=== PATIENT | female | born 1930 | race Caucasian/White ===

== ENCOUNTER 2020-05-14 13:35 | Inpatient (IN) | payer MEDICARE ==
[2020-05-14 14:42] LABS: BILIRUBIN NEGATIVE (NEGATIVE); BLOOD NEGATIVE Ery/uL (NEGATIVE); CLARITY CLEAR (CLEAR); COLOR YELLOW (YELLOW); GLUCOSE (U) NORMAL (NORMAL); LEUKOCYTES 2+ Leu/uL (NEGATIVE); NITRITE NEGATIVE (NEGATIVE); PROTEIN NEGATIVE (NEGATIVE); SPECIFIC GRAVITY 1.015 (1.001-1.030); UROBILINOGEN 0.2 mg/dL (0.2-1.0); pH 6.5 (5.0-9.0)
[2020-05-14 14:55] LABS: BASOPHIL 0.6 % (0-2); EOSINOPHIL 2.9 % (0-7); HCT 36.8 % (37.0-47.0); HGB 11.9 g/dl (12.5-16.0); LYMPHOCYTE 30.6 % (15-48); MCH 30.1 pg (25.0-31.0); MCHC 32.3 g/dL (32.0-36.0); MCV 93.2 fL (78.0-100.0); MONOCYTE 9.1 % (0-12); MPV 10.1 fL (6.0-9.5); NRBC 0; PLT 320 K/uL (150-400); RBC 3.95 M/uL (4.20-5.40); WBC 9.7 K/uL (4.0-10.5)
[2020-05-14 14:56] LABS: BACTERIA TRACE; SQUAMOUS EPITHELIAL CELLS RARE; URINARY RBC RARE
[2020-05-14 15:17] LABS: ALBUMIN 1.9 g/dL (3.4-5.0); BILIRUBIN - TOTAL 0.4 mg/dL (0.2-1.0); BUN/CREAT RATIO (CALC) 22.1 RATIO; CREATININE 0.86 mg/dL (0.51-0.95); GLOBULIN (CALCULATION) 4.4 g/dL; POTASSIUM 5.5 mmol/L (3.5-5.1); TOTAL PROTEIN 6.3 g/dL (6.4-8.2)
[2020-05-14 15:30] LABS: LACTIC ACID 2.7 mmol/L (0.4-1.9)
[2020-05-14] MEDS ORDERED: DIGITEK125 MCG PO (21:01)
[2020-05-14] MEDS ORDERED: GABAPENTIN600 MG PO (21:02)
[2020-05-14] MEDS ORDERED: ARICEPT 5MG TABL5 MG PO (21:02)
[2020-05-14] MEDS ORDERED: SYNTHROID50 MCG PO (21:03)
[2020-05-14] MEDS ORDERED: LOPRESSOR50 MG PO (21:04)
[2020-05-14] MEDS ORDERED: DITROPAN5 MG PO (21:04)
[2020-05-14] MEDS ORDERED: NORCO 5-325 TA1 EACH PO (21:06)
[2020-05-14] MEDS ORDERED: ASPIRIN EC81 MG PO (21:06)
[2020-05-14] MEDS ORDERED: ALENDRONATE SOD70 MG PO (21:07)
[2020-05-14] MEDS ORDERED: BUMEX1 MG PO ×2 (21:08→21:09)
[2020-05-14] MEDS ORDERED: DOXYCYCLINE MO100 MG PO (21:11)
[2020-05-14] MEDS ORDERED: MACROBID100 MG PO (21:12)
[2020-05-14] MEDS ORDERED: FAMOTIDINE20 MG PO (21:13)
[2020-05-15 05:48] LABS: HGB 11.3 g/dl (12.5-16.0); MCH 29.7 pg (25.0-31.0); MCHC 32.3 g/dL (32.0-36.0); MCV 91.9 fL (78.0-100.0); MPV 10.2 fL (6.0-9.5); RBC 3.81 M/uL (4.20-5.40); RDW 16.9 % (11.5-14.0)
[2020-05-15 06:22] LABS: BUN/CREAT RATIO (CALC) 21.2 RATIO; CREATININE 0.8 mg/dL (0.51-0.95); POTASSIUM 5.1 mmol/L (3.5-5.1)
--- NOTE | 2020-05-15 13:56 | NUR ---
MET WITH PT FOR ASSESSMENT. PT. STATES THAT SHE RESIDES WITH HER DAUGHTER AFTER RETURNING FROM HER HOME IN [place]. SHE MOVED IN WITH HER DAUGHTER HER DAUGHTER IN LAW AND NO ONE WAS HOME TO HELP HER. PT. STATES THAT SHE HAS A NURSE, AND THERAPIST, BUT IS UNSURE OF WHO THE NURSE IS WITH. TC TO PT. DAUGHTER, MARGARET GALLEGO, SHE STATED THAT THEY RESIDE AT [address] [place] [address]. SHE ADVISED THAT HER MOTHER IS CURRENT WITH [facility]. SHE HAS A NURSE AND A THERAPIST. SHE ALSO HAS A ROLLING WALKER, WHEELCHAIR, SHOWER CHAIR, 05/12 AND A HOSPITAL BED. LUKE STATED THAT SHE WANTS TO CONTINUE WITH [facility]. AFFLIATIONS EXPLAINED. SHE IS AWARE THAT HER MOTHER WILL COMPLETE HER IV ABX WHILE IN THE HOSPITAL. PT. WILL D/C BACK HOME WITH HER DAUGHTER.
[2020-05-16 05:36] LABS: HCT 37.3 % (37.0-47.0); HGB 11.9 g/dl (12.5-16.0); MCH 30.3 pg (25.0-31.0); MCHC 31.9 g/dL (32.0-36.0); MCV 94.9 fL (78.0-100.0); MPV 10.5 fL (6.0-9.5); RBC 3.93 M/uL (4.20-5.40); RDW 17.2 % (11.5-14.0); WBC 6.5 K/uL (4.0-10.5)
[2020-05-16 05:56] LABS: BUN/CREAT RATIO (CALC) 18.1 RATIO; CREATININE 0.83 mg/dL (0.51-0.95); POTASSIUM 5.2 mmol/L (3.5-5.1)
[2020-05-16] MEDS ORDERED: ERTAPENEM1 GM IV (11:39)
--- NOTE | 2020-05-16 14:13 | NUR ---
PT. TO D/C HOME WITH DAUGHTER AT [address] [place], [place] [address]. PT. HAS A ROLLING WALKER, WHEELCHAIR, SHOWER CHAIR, 05/12 AND HOSPITAL BED. SHE IS CURRENT WITH [facility] . PT. IS RECIEVED A PICC OR MIDLINE FOR IV ABX. THIS REFERRAL HAS BEEN SENT TO [facility]. [facility] WILL ARRANGE FOR IV [facility]. THROUGH [facility]. ANTICIPATED D/C IS 05/17/20.
--- NOTE | 2020-05-16 14:14 | NUR ---
TC WITH DAUGHTER, SHE IS AGREEABLE TO PAY THE COST OF THE ABX. OF $423.00 SHE DOES NOT WANT TO SEND HER MOTHER TO A CARE HOME UNIT NOR DOES SHE WANT TO DO OUTPT. IV ABX. WENT TO PT. ROOM AND CALLED DAUGHTER SO SHE COULD TELL HER MOTHER THE PLAN ABOUT THE ABX. MOTHER IS IN AGREEMENT. DR. PAREKH ALSO SPOKE WITH DAUGHTER AND EXPLAINED ABOUT THE TYPE OF ABX. ADVISED SHANON MAHMOOD OF THE PLAN FOR THE PT. D/C.
--- NOTE | 2020-05-16 16:56 | NUR ---
1510 PT HAD A PICC LINE ORDERED, TALKED WITH DR. PAREKH , SHE SAID A MIDLINE IS OK INSTEAD OF A PICC LINE. PROCEDURE WAS EXPLAINED TO THE PATIENT, PT AGREED. PT'S LEFT ARM WAS POSITIONED OUT TO THE SIDE AND THE US MACHINE WAS USED TO LOCATE THE LEFT UPPPER ARM BASILIC VEIN. THEN THE ALYSSA WAS CLEANSED WITH CHLORAPREP, THE US MACHINE WS USED ONCE AGAIN TO LOCATE THE ALYSSA BASILIC VEIN, A #21G GUIDE NEEDLE WAS USED TO CANNULATE THE VEIN ,COULD NOT THREAD IT INTO THE VEIN, THE US WAS USED TO LOCATE ANOTHER VEIN AND A #21 G NEEDLE WAS USED, THERE WAS GOOD BLOOD RETURN AND THE GUIDE WIRE WAS THREADED INTO POSITION. A 20 G MIDLINE 10CM LENGTH WAS THREADED OVER THE GUIDE WIRE INTO PLACE, THERE WAS GOOD BLOOD RETURN AND IT FLUSHED EASILY WITH NORMAL SALINE. A LOOP WAS ATTACHED WITH AN END CAP, THIS WAS FLUSHED BEFORE CONNECTING IT ONTO THE MIDLINE, THE AREA WAS CLEANED WITH STERILE SALINE. THE MIDLINE WAS DRESSED WITH A STERILE DRESSING AND IT WAS THEN FLUSHED AGAIN WITH 20 ML OF NORMAL SALINE, IT HAD GOOD BLOOD RETURN PRIOR TO FLUSHING. rEPORT WS GIVEN TO Ignacia MAHMOOD ON MED/SURG. THE BED WAS LOWERED TO THE LOWEST POSITION, BED ALARM WAS ON, SIDE RAILS UP X2 AND THE CALL LIGHT WAS WITHIN REACH. PT TOLERATED THE PROCEDURE WELL.
--- NOTE | 2020-05-17 07:30 | NUR ---
ORIENTATING LOIS CLAUDIO, VERIFIES DOCUMENTATION TRUE AND ACCURATE. DID ALL ASSESMENTS AND MEDICATION PASSES WITH LOIS CLAUDIO
--- NOTE | 2020-05-17 15:05 | NUR ---
DISCHARGE INSTRUCTIONS GONE OVER WITH DAUGHTER WHO WILL BE TAKING CARE OF THE PATIENT AT HOME.
== END 2020-05-17 15:00 | disposition home health service (06) | DRG 872 ==
LOC: FER 13:35 → FMS 16:45
PROVIDERS: Emergency Medicine; ADMIT Hospitalist
PROC: 05HY33Z Insertion of Infusion Device into Upper Vein, Percutaneous Approach (ICD-10-PCS; principal; 2020-05-16)
DX: A41.9 Sepsis, unspecified organism (principal); N39.0 Urinary tract infection, site not specified; Z16.12 Extended spectrum beta lactamase (ESBL) resistance; I50.32 Chronic diastolic (congestive) heart failure; I13.0 Hypertensive heart and chronic kidney disease with heart failure and stage 1 through stage 4 chronic kidney disease, or unspecified chronic kidney disease; B96.20 Unspecified Escherichia coli [E. coli] as the cause of diseases classified elsewhere; E03.9 Hypothyroidism, unspecified; I48.91 Unspecified atrial fibrillation; E11.9 Type 2 diabetes mellitus without complications; E78.5 Hyperlipidemia, unspecified; N18.30 Chronic kidney disease, stage 3 unspecified; G89.29 Other chronic pain; M54.9 Dorsalgia, unspecified; M54.2 Cervicalgia; Z86.73 Personal history of transient ischemic attack (TIA), and cerebral infarction without residual deficits; Z88.2 Allergy status to sulfonamides; Z88.6 Allergy status to analgesic agent; Z90.49 Acquired absence of other specified parts of digestive tract; Z79.82 Long term (current) use of aspirin; Z20.822 Contact with and (suspected) exposure to COVID-19; F03.90 Unspecified dementia, unspecified severity, without behavioral disturbance, psychotic disturbance, mood disturbance, and anxiety
CPT/HCPCS: 36415; 80048; 80053; 81001; 83605; 84145; 85025; 87040; 87088; 93005; 97162; 97166; 97530; 97530-GP; 97535; C1751; J1642; J2185; J7030; U0002

== ENCOUNTER 2020-06-02 23:22 | Inpatient (IN) | payer MEDICARE ==
[~2020-06-02 23:22] MED LIST: ALENDRONATE SOD70 MG PO; ARICEPT 5MG TABL5 MG PO; ASPIRIN EC81 MG PO; BUMEX1 MG PO; DIGITEK125 MCG PO; DITROPAN5 MG PO; DOXYCYCLINE MO100 MG PO; ERTAPENEM1 GM IV; FAMOTIDINE20 MG PO; GABAPENTIN600 MG PO; LOPRESSOR50 MG PO; MACROBID100 MG PO; NORCO 5-325 TA1 EACH PO; SYNTHROID50 MCG PO
[2020-06-03 00:48] LABS: BASOPHIL 0.2 % (0-2); EOSINOPHIL 0 % (0-7); HCT 32.6 % (37.0-47.0); LYMPHOCYTE 20.6 % (15-48); MCH 30.6 pg (25.0-31.0); MCHC 33.7 g/dL (32.0-36.0); MCV 90.8 fL (78.0-100.0); MONOCYTE 6.6 % (0-12); MPV 10.6 fL (6.0-9.5); NEUTROPHIL 72.1 % (41-80); NRBC 0; PLT 298 K/uL (150-400); RBC 3.59 M/uL (4.20-5.40); RDW 16.4 % (11.5-14.0)
[2020-06-03 01:02] LABS: INR 1.1 (0.9-1.2); PROTHROMBIN TIME 13.5 SECONDS (11.4-13.6); PTT 34.3 SECONDS (22.2-34.7)
[2020-06-03 01:56] LABS: CREATININE 1.26 mg/dL (0.51-0.95); POTASSIUM 4.7 mmol/L (3.5-5.1)
[2020-06-03 01:57] LABS: ALBUMIN 1.6 g/dL (3.4-5.0); BILIRUBIN - TOTAL 0.5 mg/dL (0.2-1.0); C-REACTIVE PROTEIN 12.8 mg/dL (<=0.90); GLOBULIN (CALCULATION) 4.1 g/dL; MAGNESIUM 2.4 mg/dL (1.8-2.4); TOTAL PROTEIN 5.7 g/dL (6.4-8.2)
[2020-06-03 02:07] LABS: BILIRUBIN NEGATIVE (NEGATIVE); BLOOD NEGATIVE Ery/uL (NEGATIVE); CLARITY CLEAR (CLEAR); COLOR YELLOW (YELLOW); GLUCOSE (U) NORMAL (NORMAL); LEUKOCYTES NEGATIVE Leu/uL (NEGATIVE); NITRITE NEGATIVE (NEGATIVE); PROTEIN NEGATIVE (NEGATIVE); UROBILINOGEN 0.2 mg/dL (0.2-1.0)
[2020-06-03] MEDS ORDERED: TRAMADOL HCL50 MG PO (05:08)
[2020-06-03] MEDS ORDERED: PHENERGAN12.5 M1 PO (05:10)
[2020-06-03 06:00] LABS: ALBUMIN 1.4 g/dL (3.4-5.0); BILIRUBIN - TOTAL 0.5 mg/dL (0.2-1.0); BUN/CREAT RATIO (CALC) 14.5 RATIO; CREATININE 1.17 mg/dL (0.51-0.95); GLOBULIN (CALCULATION) 3.6 g/dL; POTASSIUM 4.4 mmol/L (3.5-5.1)
[2020-06-03 12:24] LABS: BASOPHIL 0.1 % (0-2); EOSINOPHIL 0.7 % (0-7); HCT 27.1 % (37.0-47.0); LYMPHOCYTE 24.9 % (15-48); MCH 30.5 pg (25.0-31.0); MCHC 33.2 g/dL (32.0-36.0); MCV 91.9 fL (78.0-100.0); MONOCYTE 6.9 % (0-12); MPV 10.4 fL (6.0-9.5); NEUTROPHIL 66.8 % (41-80); NRBC 0; PLT 234 K/uL (150-400); RBC 2.95 M/uL (4.20-5.40); RDW 16.7 % (11.5-14.0); WBC 13.6 K/uL (4.0-10.5)
[2020-06-03 12:45] LABS: IRON % SATURATION 6.6 %SAT (20-50)
[2020-06-03 13:14] LABS: FOLIC ACID (SERUM) 11.5 ng/mL (8.6-58.9); FT4 (FREE T4) 1.6 ng/dL (0.76-1.46)
[2020-06-04 03:35] LABS: BASOPHIL 0.2 % (0-2); EOSINOPHIL 2.8 % (0-7); HGB 8.5 g/dl (12.5-16.0); LYMPHOCYTE 23.6 % (15-48); MCH 30.5 pg (25.0-31.0); MCHC 32.7 g/dL (32.0-36.0); MCV 93.2 fL (78.0-100.0); MONOCYTE 7.1 % (0-12); MPV 10.5 fL (6.0-9.5); NEUTROPHIL 65.5 % (41-80); NRBC 0; PLT 212 K/uL (150-400); RBC 2.79 M/uL (4.20-5.40); RDW 16.6 % (11.5-14.0); WBC 11.2 K/uL (4.0-10.5)
[2020-06-04 04:05] LABS: PRO-BNP 4588 pg/mL (<450)
[2020-06-04 04:07] LABS: ALBUMIN 1.2 g/dL (3.4-5.0); ALKALINE PHOSHATASE 85 U/L (46-116); ALT <6 U/L (14-59); AST 14 U/L (15-37); BILIRUBIN - TOTAL 0.3 mg/dL (0.2-1.0); BUN 18 mg/dL (7-18); BUN/CREAT RATIO (CALC) 16.2 RATIO; C-REACTIVE PROTEIN >18.00 mg/dL (<=0.90); CHLORIDE 106 mmol/L (98-107); CO2 (BICARBONATE) 24 mmol/L (21-32); CREATININE 1.11 mg/dL (0.51-0.95); FOLIC ACID (SERUM) 9.3 ng/mL (8.6-58.9); GLOBULIN (CALCULATION) 3.4 g/dL; GLUCOSE 81 mg/dL (74-106); POTASSIUM 3.8 mmol/L (3.5-5.1); TOTAL PROTEIN 4.6 g/dL (6.4-8.2)
[2020-06-04 12:51] LABS: BASOPHIL 0.3 % (0-2); EOSINOPHIL 3.1 % (0-7); HCT 28.4 % (37.0-47.0); HGB 9.7 g/dl (12.5-16.0); LYMPHOCYTE 29.9 % (15-48); MCH 30.6 pg (25.0-31.0); MCHC 34.2 g/dL (32.0-36.0); MCV 89.6 fL (78.0-100.0); MPV 10.6 fL (6.0-9.5); NEUTROPHIL 58.9 % (41-80); PLT 210 K/uL (150-400); RBC 3.17 M/uL (4.20-5.40); RDW 16.2 % (11.5-14.0); WBC 12.1 K/uL (4.0-10.5)
[2020-06-04 13:26] LABS: ALBUMIN 1.3 g/dL (3.4-5.0); BILIRUBIN - TOTAL 0.3 mg/dL (0.2-1.0); BUN/CREAT RATIO (CALC) 17.3 RATIO; CREATININE 0.98 mg/dL (0.51-0.95); GLOBULIN (CALCULATION) 3.2 g/dL; MAGNESIUM 1.9 mg/dL (1.8-2.4); PHOSPHORUS 2.8 mg/dL (2.6-4.7); POTASSIUM 4.6 mmol/L (3.5-5.1); TOTAL PROTEIN 4.5 g/dL (6.4-8.2)
[2020-06-04 13:30] LABS: BAND 1 % (0-10); EOSINOPHIL(M) 3 % (0-7); MONOCYTE(M) 6 % (0-12); NEUTROPHILS(M) 62 % (41-80); TOTAL CELL COUNT 100; VARIANT LYMPHOCYTE 1
[2020-06-04 13:31] LABS: LYMPHOCYTE(M) 2 % (15-48)
[2020-06-04 13:32] LABS: PLATELET ESTIMATE NORMAL; PLATELET MORPHOLOGY NORMAL
--- NOTE | 2020-06-04 16:12 | NUR ---
06/04/20 Ms. Jurado lives with her daughter, Azra Macedo, in [facility]. She has a rw, wc, 3in1, and s. chair. [facility] is current and Ms. Angel wishes to continue services. [facility] was notified of admission via [employer].
[2020-06-05 03:42] LABS: BASOPHIL 0.2 % (0-2); EOSINOPHIL 0.6 % (0-7); HCT 25.7 % (37.0-47.0); HGB 8.7 g/dl (12.5-16.0); LYMPHOCYTE 21.2 % (15-48); MCH 30.6 pg (25.0-31.0); MCHC 33.9 g/dL (32.0-36.0); MCV 90.5 fL (78.0-100.0); MONOCYTE 6.1 % (0-12); MPV 10.7 fL (6.0-9.5); NEUTROPHIL 70.3 % (41-80); NRBC 0; PLT 201 K/uL (150-400); RBC 2.84 M/uL (4.20-5.40); RDW 16.5 % (11.5-14.0); WBC 10.3 K/uL (4.0-10.5)
[2020-06-05 04:07] LABS: PRO-BNP 6051 pg/mL (<450)
[2020-06-05 04:09] LABS: ALBUMIN 1.5 g/dL (3.4-5.0); ALKALINE PHOSHATASE 93 U/L (46-116); ALT 6 U/L (14-59); AST 15 U/L (15-37); BILIRUBIN - TOTAL 0.3 mg/dL (0.2-1.0); BUN 14 mg/dL (7-18); BUN/CREAT RATIO (CALC) 15.4 RATIO; C-REACTIVE PROTEIN >18.00 mg/dL (<=0.90); CHLORIDE 106 mmol/L (98-107); CO2 (BICARBONATE) 24 mmol/L (21-32); CREATININE 0.91 mg/dL (0.51-0.95); GLOBULIN (CALCULATION) 3.4 g/dL; GLUCOSE 81 mg/dL (74-106); MAGNESIUM 1.6 mg/dL (1.8-2.4); POTASSIUM 3.9 mmol/L (3.5-5.1); TOTAL PROTEIN 4.9 g/dL (6.4-8.2)
--- NOTE | 2020-06-05 17:02 | NUR ---
PT C/O BACK/CHEST HURTING, FEELING SOA, HR 130'S. P.O. LOPRESSOR RESUMED, DR. CARPENTER NOTIFIED, CAME TO BEDSIDE TO ASSESS PT - LUNGS CLEAR TO AUSCULTATION, VSS 02 SATS 98% ON RA, PLACED ON 2 L/MIN PER NC FOR COMFORT & SATS 99-100%. MD ORDERED EKG, TROPONIN, BMP, CXR. TORADOL GIVEN ORDERED PER IVP & HR & PAIN IMPROVED. WILL CONTINUE TO MONITOR CLOSELY & AWAIT TEST RESULTS. MD TO ALSO ORDER BUMEX IVP & DECREASE IVF PT HAS HX OF CHF.
[2020-06-05 17:41] LABS: BUN/CREAT RATIO (CALC) 11.9 RATIO; CREATININE 0.84 mg/dL (0.51-0.95); POTASSIUM 3.8 mmol/L (3.5-5.1)
[2020-06-06 04:32] LABS: BASOPHIL 0.4 % (0-2); EOSINOPHIL 4.4 % (0-7); HCT 26.4 % (37.0-47.0); HGB 9.1 g/dl (12.5-16.0); MCH 30.7 pg (25.0-31.0); MCHC 34.5 g/dL (32.0-36.0); MCV 89.2 fL (78.0-100.0); MONOCYTE 7.5 % (0-12); MPV 10.4 fL (6.0-9.5); NEUTROPHIL 65.4 % (41-80); NRBC 0; PLT 197 K/uL (150-400); RBC 2.96 M/uL (4.20-5.40); RDW 16.5 % (11.5-14.0); WBC 8.3 K/uL (4.0-10.5)
[2020-06-06 04:56] LABS: PRO-BNP 8601 pg/mL (<450)
[2020-06-06 05:21] LABS: ALBUMIN 1.6 g/dL (3.4-5.0); ALKALINE PHOSHATASE 93 U/L (46-116); ALT <6 U/L (14-59); AST 11 U/L (15-37); BILIRUBIN - TOTAL 0.3 mg/dL (0.2-1.0); BUN 9 mg/dL (7-18); BUN/CREAT RATIO (CALC) 10.6 RATIO; CHLORIDE 105 mmol/L (98-107); CO2 (BICARBONATE) 24 mmol/L (21-32); CREATININE 0.85 mg/dL (0.51-0.95); FOLIC ACID (SERUM) 10.6 ng/mL (8.6-58.9); GLOBULIN (CALCULATION) 3.4 g/dL; GLUCOSE 87 mg/dL (74-106); MAGNESIUM 1.8 mg/dL (1.8-2.4); PHOSPHORUS 2.1 mg/dL (2.6-4.7); POTASSIUM 3.8 mmol/L (3.5-5.1)
--- NOTE | 2020-06-06 21:30 | NUR ---
PT GLUCOSE CHECKED AD IT WAS 76, CALLED TO MOLD MAINTENANCE TECHNICIAN NO NEW ORDERS
[2020-06-07 04:06] LABS: BASOPHIL 0.8 % (0-2); EOSINOPHIL 2.6 % (0-7); HGB 9.5 g/dl (12.5-16.0); LYMPHOCYTE 30.3 % (15-48); MCH 29.7 pg (25.0-31.0); MCHC 33.9 g/dL (32.0-36.0); MCV 87.5 fL (78.0-100.0); MONOCYTE 9.9 % (0-12); MPV 10.2 fL (6.0-9.5); NEUTROPHIL 52.4 % (41-80); NRBC 0.2; PLT 209 K/uL (150-400); RDW 16.5 % (11.5-14.0); WBC 9.9 K/uL (4.0-10.5)
[2020-06-07 04:38] LABS: BUN/CREAT RATIO (CALC) 8.6 RATIO; CREATININE 0.81 mg/dL (0.51-0.95); POTASSIUM 3.7 mmol/L (3.5-5.1)
--- NOTE | 2020-06-07 04:46 | NUR ---
PT GLUCOSE WAS 81, NOTIFIED CERAMIST- NO NEW ORDERS
--- NOTE | 2020-06-07 18:05 | NUR ---
06/07/20 180 PT HAS A HUSTORY OF DEMENTIA AND SEEMS TO BE A&OX2 TODAY. PT CAN STATE NAME AND BIRTHDAY BUT WHEN NOT THE DATE. PT KNOWS DAUGHTERS NAME AND WAS READING NAME ON DRY Hello Chair BOARD. PT SEEMS LETHARGIC AND HAS AN UNEQUAL GAZE. THIS RN IS NOT SURE WHAT THE EYE CONDITION IS CALLED. PT HAS NOT COMPLAINED OF ANY PAIN TODAY BUT PT HAS NOT EATEN ANYTHING BUT APPLESAUCE WITH MEDS. PT DOES WELL TAKING PO MEDS. PTS HAS +3 EDEMA ON BUE AND HER LEFT ARM IS STARTING TO WEEP. PT HAS HAS FLUID BLISTERS ON RIGHT CHEST FROM FLUID OVERLOAD. MD NOTIFIED AND BUMEX IVP WAS STARTED AND LR @42 WAS DC'D. PT IS RECIEVING 3 DIFFERENT ABX FOR HER DIVERTICULITIS. PT HAS A CENTRAL RIGHT SUBCLAVIAN IN RIGHT UPPER CHEST. DRESSING WAS CHANGED TODAY AFTER A VENOUS DOPPLER WAS PERFORMED. VENOUS DOPPLER WAS ORDERED TO RULE OUT DVT IN RIGHT ARM R/T INCREASED SWELLING. VENOUS DOPPLER WAS NEGATIVE FOR DVT. A CXR WAS ALSO DONE TO SEE WORSENING EDEMA R/T CHF HISTORY. CXR DID SHOW PULM EDEMA AND PLUREAL EFFUSIONS. AGAIN, BUMEX WAS ORDERED, WITH 60 MEQ POTASSIUM. PT HAS A RODRIGUES AND OUTPUT WAS 650CC ON SHIFT. THERE IS A SKIN TEAR ABOUT 4 IN BESIDE CENTRAL ON RIGHT UPPER CHEST. THIS WAS NOTICED WHEN CHANGING DRESSING AND DOCUMENTED. PT LEGS HAVE VENOUS DISCOLRATION, SCATTERED SCABS AND BRUISING ON ALL EXTREMITIES. PT HAS A 3 IN SKIN TEAR ON LEFT UPPER ARM COVERED WITH ALLVEYN. THIS DRESSING WAS CHANGED TODAY BY THIS RN. BOTH SKIN TEARS HAVE BIATRACIN APPLIED. PT GROIN AND BOTTOM ARE RED AND COVERED WITH BARRIER CREAM AND Q2H TURNS. HEELS ARE ELEVATED. AND BOTH UPPER EXTREMITIES ARE ELEVATED TO DECREASE SWELLING. PTS DAUGHTER CALLED RN TODAY AND STATED MANY CONCERNS SHE HAD WITH THE PREVIOUS DR AND THIS HOSPITAL. DAUGHTER STATED "SHE DOES NOT TRUST US" AND SHE HAS NOT BEEN BEING INFORMED OF HER MOTHERS CONDITION AT ALL TIME. RN REASSURED DAUGHTER TO CONTINUE TO INFORM HER. PT WAS STATED BACK ON OXYBUTIN TID FOR CKD. PT LUNGS SOUNDS ARE FAINT CRACKLES GREATER ON THE RIGHT. BP HAS BEEN ELEVATED AT 170/93 BUT ORDERED 200MG LOPRESSOR AND A 1 TIME DOSE OF LOPRESSOR 50MG. LAST BP WAS 114/88. PT IS ON ROOM AIR. PT WORKED WITH HER TODAY AND GOT PT UP IN CHAIR TO PROMOTE LUNG EXPANSION R/T EFFUSIONS AND EDEMA. DAUGHTER HAS BEEN NOTIFIED X3 TODAY BY THIS RN AND ONCE BY .
[2020-06-08 04:52] LABS: ALBUMIN 1.6 g/dL (3.4-5.0); ALKALINE PHOSHATASE 101 U/L (46-116); ALT <6 U/L (14-59); AST 21 U/L (15-37); BILIRUBIN - TOTAL 0.5 mg/dL (0.2-1.0); BUN 7 mg/dL (7-18); BUN/CREAT RATIO (CALC) 8.2 RATIO; CHLORIDE 104 mmol/L (98-107); CO2 (BICARBONATE) 24 mmol/L (21-32); CREATININE 0.85 mg/dL (0.51-0.95); GLOBULIN (CALCULATION) 3.7 g/dL; GLUCOSE 89 mg/dL (74-106); PHOSPHORUS 1.5 mg/dL (2.6-4.7); POTASSIUM 4.5 mmol/L (3.5-5.1); TOTAL PROTEIN 5.3 g/dL (6.4-8.2)
[2020-06-08 04:55] LABS: MAGNESIUM 1.4 mg/dL (1.8-2.4)
[2020-06-08 05:17] LABS: BASOPHIL 0.2 % (0-2); EOSINOPHIL 1.6 & (0-7); HCT 30.4 % (37.0-47.0); HGB 10.2 g/dl (12.5-16.0); LYMPHOCYTE 31.6 % (15-48); MCH 29.4 pg (25.0-31.0); MCHC 33.6 g/dL (32.0-36.0); MCV 87.6 fL (78.0-100.0); MONOCYTE 10.6 % (0-12); MPV 11.1 fL (6.0-9.5); PLT 243 K/uL (150-400); RBC 3.47 M/uL (4.20-5.40); RDW 16.6 % (11.5-14.0); WBC 12.25 K/uL (4.0-10.5)
[2020-06-08 14:26] LABS: BILIRUBIN NEGATIVE (NEGATIVE); BLOOD NEGATIVE Ery/uL (NEGATIVE); CLARITY CLEAR (CLEAR); COLOR YELLOW (YELLOW); GLUCOSE (U) NORMAL (NORMAL); LEUKOCYTES NEGATIVE Leu/uL (NEGATIVE); NITRITE NEGATIVE (NEGATIVE); PROTEIN NEGATIVE (NEGATIVE); UROBILINOGEN 0.2 mg/dL (0.2-1.0)
[2020-06-08 14:43] LABS: BACTERIA TRACE; SQUAMOUS EPITHELIAL CELLS RARE
[2020-06-09 04:47] LABS: BASOPHIL 0.3 % (0-2); EOSINOPHIL 2.5 % (0-7); HCT 28.8 % (37.0-47.0); HGB 10.1 g/dl (12.5-16.0); LYMPHOCYTE 20.9 % (15-48); MCH 30.5 pg (25.0-31.0); MCHC 35.1 g/dL (32.0-36.0); MPV 10.4 fL (6.0-9.5); NEUTROPHIL 57.2 % (41-80); NRBC 0; PLT 210 K/uL (150-400); RBC 3.31 M/uL (4.20-5.40); RDW 16.7 % (11.5-14.0); WBC 10.8 K/uL (4.0-10.5)
[2020-06-09 05:04] LABS: ALBUMIN 1.6 g/dL (3.4-5.0); ALKALINE PHOSHATASE 108 U/L (46-116); ALT <6 U/L (14-59); AST 17 U/L (15-37); BILIRUBIN - TOTAL 0.5 mg/dL (0.2-1.0); BUN 9 mg/dL (7-18); BUN/CREAT RATIO (CALC) 11.2 RATIO; CHLORIDE 105 mmol/L (98-107); CO2 (BICARBONATE) 21 mmol/L (21-32); GLOBULIN (CALCULATION) 3.1 g/dL; GLUCOSE 107 mg/dL (74-106); PHOSPHORUS 3.5 mg/dL (2.6-4.7); POTASSIUM 3.9 mmol/L (3.5-5.1); TOTAL PROTEIN 4.7 g/dL (6.4-8.2)
--- NOTE | 2020-06-09 14:55 | NUR ---
06/09/20 Telephone conversation with Azra Angel, daughter. Patient's level of care was discussed and options of NH vs HH vs Hospice. Ms. Sandy wishes for her mother to be discharged home with HH when appropriate. - Patient has a hospital bed in addition to the DME previously listed, Ms. Angel would like a flaco lift if needed at discharge. - A list of sitters was placed in the patient room as agreed upon with Ms. Angel. - Report given to Dr. Bean.
--- NOTE | 2020-06-10 03:54 | NUR ---
06/10/20 0300 HEART RATE UP INTO THE 130-150 HEATER INSTALLER CONSULTED, NO EKG ORDERED, 5MG LOPRESSOR IVP ORDERED ONE TIME NOW, IVP GIVEN, HEART RATE 0400 70-80
--- NOTE | 2020-06-10 06:01 | NUR ---
0430 HR 130'S COOKIE SALDANA APRN CALLED, ORDERED 1T LOPRESSOR 5ML IVP AND 1T 50 MG LOPRESSOR PO, BP 121/71, 0530 HR 60 0600 HR 40-60
--- NOTE | 2020-06-10 15:30 | NUR ---
PATIENT WITH PERIODS OF BRADYCARDIA IN THE 30'S, NON SUSTAINED, ASYMPTOMIC. NOTIFIED. ORDERS TO D/C PO METOPROLOL AND CONTINUE TO MONITOR
[2020-06-11 03:33] LABS: BASOPHIL 0.7 % (0-2); EOSINOPHIL 4.1 % (0-7); HCT 28.9 % (37.0-47.0); LYMPHOCYTE 39.6 % (15-48); MCH 30.4 pg (25.0-31.0); MCHC 34.6 g/dL (32.0-36.0); MCV 87.8 fL (78.0-100.0); MONOCYTE 12.8 % (0-12); MPV 10.2 fL (6.0-9.5); NEUTROPHIL 36.2 % (41-80); NRBC 0.4; PLT 216 K/uL (150-400); RBC 3.29 M/uL (4.20-5.40); RDW 17.4 % (11.5-14.0)
[2020-06-11 03:36] LABS: WBC 12.6 K/uL (4.0-10.5)
[2020-06-11 04:01] LABS: BUN/CREAT RATIO (CALC) 18.7 RATIO; CREATININE 0.75 mg/dL (0.51-0.95); POTASSIUM 3.7 mmol/L (3.5-5.1)
[2020-06-11] MEDS ORDERED: MEROPENEM-1 GM/50 ML IV (10:24)
--- NOTE | 2020-06-11 11:52 | NUR ---
06/11 Patient will be transferred to [facility], [facility] was notified.
--- NOTE | 2020-07-03 14:20 | NUR ---
PT. TO D/C HOME. PT. HAS A ROLLING WALKER, WHEELCHAIR, 3, HOSPITAL BED. PT. IS CURRENT WITH [facility]. PLEASE NOTIFY IF THERE ARE ANY D/C NEEDS. PT. WITH [facility] HAS BEEN NOTIFIED. PLEASE FAX D/C INFORMATION TO [facility] AT [phone].
== END 2020-06-11 11:50 | disposition other institution (70) | DRG 871 ==
LOC: FER 23:22 → FICU 06-03 02:56 → FTCU 06-03 17:30
PROVIDERS: Emergency Medicine; Internal Medicine; Nurse Practitioner; ADMIT Internal Medicine
PROC: 02H633Z Insertion of Infusion Device into Right Atrium, Percutaneous Approach (ICD-10-PCS; principal; 2020-06-02)
DX: A41.9 Sepsis, unspecified organism (principal); J69.0 Pneumonitis due to inhalation of food and vomit; G92 Toxic encephalopathy; E43 Unspecified severe protein-calorie malnutrition; I50.33 Acute on chronic diastolic (congestive) heart failure; I48.20 Chronic atrial fibrillation, unspecified; K57.32 Diverticulitis of large intestine without perforation or abscess without bleeding; E87.2 Acidosis; N17.9 Acute kidney failure, unspecified; R65.20 Severe sepsis without septic shock; I11.0 Hypertensive heart disease with heart failure; Z96.653 Presence of artificial knee joint, bilateral; Z66 Do not resuscitate; Z20.822 Contact with and (suspected) exposure to COVID-19; M79.7 Fibromyalgia; E03.9 Hypothyroidism, unspecified; I48.91 Unspecified atrial fibrillation; I73.9 Peripheral vascular disease, unspecified; G62.9 Polyneuropathy, unspecified; S40.812A Abrasion of left upper arm, initial encounter; K21.9 Gastro-esophageal reflux disease without esophagitis; I95.9 Hypotension, unspecified; L89.152 Pressure ulcer of sacral region, stage 2; D50.9 Iron deficiency anemia, unspecified; I27.20 Pulmonary hypertension, unspecified; F03.90 Unspecified dementia, unspecified severity, without behavioral disturbance, psychotic disturbance, mood disturbance, and anxiety; Z90.49 Acquired absence of other specified parts of digestive tract; Z90.710 Acquired absence of both cervix and uterus; Z88.0 Allergy status to penicillin; Z88.2 Allergy status to sulfonamides; Z87.440 Personal history of urinary (tract) infections; Z86.73 Personal history of transient ischemic attack (TIA), and cerebral infarction without residual deficits; Z79.82 Long term (current) use of aspirin; Z79.899 Other long term (current) drug therapy; Z68.29 Body mass index [BMI] 29.0-29.9, adult
CPT/HCPCS: 36415; 36600; 71045; 71250; 80048; 80053; 80162; 81001; 81003; 82607; 82728; 82746; 82803; 82962; 83540; 83550; 83605; 83690; 83735; 83880; 84100; 84145; 84439; 84443; 84484; 85025; 85610; 85730; 86140; 87040; 93005; 93971; 94667; 94668; 96365; 96368; 97110; 97162; 97166; 97530; 97530-GP; 97535; J0500; J0780; J1170; J1650; J1885; J1940; J1956; J2185; J2270; J2405; J2916; J3475; J7030; J7040; J7120; J7121; Q9967; U0002

== ENCOUNTER 2020-06-29 00:01 | Inpatient (IN) | payer MEDICARE ==
[~2020-06-29 00:01] MED LIST changes: +MEROPENEM-1 GM/50 ML IV; +PHENERGAN12.5 M1 PO; +TRAMADOL HCL50 MG PO
[2020-06-29 00:32] LABS: BASOPHIL 0.2 % (0-2); EOSINOPHIL 3.5 % (0-7); HCT 30.8 % (37.0-47.0); HGB 10.2 g/dl (12.5-16.0); LYMPHOCYTE 24.5 % (15-48); MCH 31.5 pg (25.0-31.0); MCHC 33.1 g/dL (32.0-36.0); MCV 95.1 fL (78.0-100.0); MPV 10.1 fL (6.0-9.5); NRBC 0; PLT 346 K/uL (150-400); RBC 3.24 M/uL (4.20-5.40); RDW 17.2 % (11.5-14.0)
[2020-06-29 00:56] LABS: ALBUMIN 1.6 g/dL (3.4-5.0); BILIRUBIN - TOTAL 0.2 mg/dL (0.2-1.0); BUN/CREAT RATIO (CALC) 17.5 RATIO; CREATININE 0.8 mg/dL (0.51-0.95); GLOBULIN (CALCULATION) 4.4 g/dL; POTASSIUM 4.6 mmol/L (3.5-5.1)
[2020-06-29 01:15] LABS: LACTIC ACID 1.7 mmol/L (0.4-1.9)
[2020-06-29 01:18] LABS: BILIRUBIN NEGATIVE (NEGATIVE); BLOOD TRACE-INTACT Ery/uL (NEGATIVE); CLARITY HAZY (CLEAR); COLOR YELLOW (YELLOW); GLUCOSE (U) NORMAL (NORMAL); LEUKOCYTES 3+ Leu/uL (NEGATIVE); NITRITE NEGATIVE (NEGATIVE); PROTEIN NEGATIVE (NEGATIVE); UROBILINOGEN 0.2 mg/dL (0.2-1.0); pH 6.5 (5.0-9.0)
[2020-06-29 01:21] LABS: BACTERIA 3+; MUCOUS MODERATE; URINARY WBC TNTC; YEAST PRESENT
[2020-06-29 02:24] LABS: CORONAVIRUS 2019 SARS-COV-2 NEGATIVE (NEGATIVE); INFLUENZA A NAA NEGATIVE (NEGATIVE)
[2020-06-29] MEDS ORDERED: PEPCID AC20 MG PO (19:57)
[2020-06-29] MEDS ORDERED: TOPROL XL 50 MG50 MG PO (20:03)
[2020-06-29] MEDS ORDERED: DIGITEK125 MCG PO (20:04)
[2020-06-29] MEDS ORDERED: ASPIRIN EC81 MG PO (20:05)
[2020-06-29] MEDS ORDERED: FOSAMAX70 MG PO (20:08)
[2020-06-29] MEDS ORDERED: BUMEX1 MG PO (20:09)
[2020-06-30 06:10] LABS: BASOPHIL 0.2 % (0-2); EOSINOPHIL 3.4 % (0-7); HCT 30.9 % (37.0-47.0); HGB 10.1 g/dl (12.5-16.0); LYMPHOCYTE 23.3 % (15-48); MCH 31.6 pg (25.0-31.0); MCHC 32.7 g/dL (32.0-36.0); MCV 96.6 fL (78.0-100.0); MONOCYTE 7.7 % (0-12); MPV 10.1 fL (6.0-9.5); NEUTROPHIL 64.2 % (41-80); NRBC 0; PLT 321 K/uL (150-400); RDW 17.2 % (11.5-14.0); WBC 10.4 K/uL (4.0-10.5)
[2020-06-30 06:30] LABS: BUN/CREAT RATIO (CALC) 16.7 RATIO; CREATININE 0.84 mg/dL (0.51-0.95); POTASSIUM 4.8 mmol/L (3.5-5.1)
--- NOTE | 2020-06-30 12:00 | NUR ---
[address] newman that the patient's heart rate has climbed to 125-to 130. new orders for po medications.
--- NOTE | 2020-06-30 15:08 | NUR ---
06/30/20 Ms. Jurado lives with her daughter; Azra. Discharge plans were discussed with Azra. She wishes for her mother to return home with [facility]. [facility] is currently seeing Ms. Jurado. Affliation understood. Ms. Jurado has a hospital bed, rw, wc, 3in1, and s. chair. - [facility] was notified of admission via [employer].
[2020-07-02 06:58] LABS: BASOPHIL 0.3 % (0-2); EOSINOPHIL 2.1 % (0-7); HCT 28.9 % (37.0-47.0); HGB 9.8 g/dl (12.5-16.0); LYMPHOCYTE 24.9 % (15-48); MCH 31.6 pg (25.0-31.0); MCHC 33.9 g/dL (32.0-36.0); MCV 93.2 fL (78.0-100.0); MONOCYTE 7.3 % (0-12); MPV 10.1 fL (6.0-9.5); NEUTROPHIL 64.1 % (41-80); NRBC 0.2; PLT 334 K/uL (150-400); RDW 16.7 % (11.5-14.0)
[2020-07-02 07:23] LABS: BUN/CREAT RATIO (CALC) 19.2 RATIO; CREATININE 0.78 mg/dL (0.51-0.95); FT4 (FREE T4) 1.6 ng/dL (0.76-1.46); MAGNESIUM 1.7 mg/dL (1.8-2.4); POTASSIUM 4.7 mmol/L (3.5-5.1)
[2020-07-03 06:09] LABS: BASOPHIL 0.6 % (0-2); EOSINOPHIL 2.7 % (0-7); HCT 30.6 % (37.0-47.0); HGB 9.9 g/dl (12.5-16.0); LYMPHOCYTE 24.3 % (15-48); MCH 31.2 pg (25.0-31.0); MCHC 32.4 g/dL (32.0-36.0); MCV 96.5 fL (78.0-100.0); MONOCYTE 9.8 % (0-12); MPV 10.1 fL (6.0-9.5); NEUTROPHIL 60.6 % (41-80); PLT 289 K/uL (150-400); RBC 3.17 M/uL (4.20-5.40); RDW 16.9 % (11.5-14.0); WBC 8.4 K/uL (4.0-10.5)
[2020-07-03 06:26] LABS: BUN/CREAT RATIO (CALC) 23.4 RATIO; CREATININE 0.94 mg/dL (0.51-0.95); POTASSIUM 4.8 mmol/L (3.5-5.1)
[2020-07-03 06:27] LABS: MAGNESIUM 2.3 mg/dL (1.8-2.4)
[2020-07-03 07:46] LABS: EOSINOPHIL(M) 5 % (0-7); LYMPHOCYTE(M) 21 % (15-48); MONOCYTE(M) 4 % (0-12); NEUTROPHILS(M) 70 % (41-80); TOTAL CELL COUNT 100
[2020-07-03 07:47] LABS: PLATELET ESTIMATE NORMAL; PLATELET MORPHOLOGY NORMAL
--- NOTE | 2020-07-03 12:20 | NUR ---
PT. IS TO D/C HOME THIS DATE 07/03/2020 WITH [facility] . PLEASE SEND D/C INFORMATION TO [facility] AT [phone]. PLEASE ADVISE IF ANY ADDITIONAL D/C NEEDS.
== END 2020-07-03 17:45 | disposition home health service (06) | DRG 871 ==
LOC: FER 00:01 → FMS 02:24
PROVIDERS: Emergency Medicine; Nurse Practitioner; ADMIT Internal Medicine
DX: A41.9 Sepsis, unspecified organism (principal); G92 Toxic encephalopathy; N30.01 Acute cystitis with hematuria; I50.32 Chronic diastolic (congestive) heart failure; I49.5 Sick sinus syndrome; I11.0 Hypertensive heart disease with heart failure; I87.8 Other specified disorders of veins; M79.7 Fibromyalgia; Z20.822 Contact with and (suspected) exposure to COVID-19; K21.9 Gastro-esophageal reflux disease without esophagitis; F03.90 Unspecified dementia, unspecified severity, without behavioral disturbance, psychotic disturbance, mood disturbance, and anxiety; E03.9 Hypothyroidism, unspecified; G89.4 Chronic pain syndrome; I73.9 Peripheral vascular disease, unspecified; G62.9 Polyneuropathy, unspecified; E83.19 Other disorders of iron metabolism; L53.9 Erythematous condition, unspecified; Z96.653 Presence of artificial knee joint, bilateral; I48.91 Unspecified atrial fibrillation; S80.212A Abrasion, left knee, initial encounter; S80.211A Abrasion, right knee, initial encounter; S40.211A Abrasion of right shoulder, initial encounter; S60.221A Contusion of right hand, initial encounter; Z90.710 Acquired absence of both cervix and uterus; Z90.49 Acquired absence of other specified parts of digestive tract; Z95.0 Presence of cardiac pacemaker; Z88.0 Allergy status to penicillin; Z88.2 Allergy status to sulfonamides; Z88.5 Allergy status to narcotic agent; Z79.82 Long term (current) use of aspirin; Z79.899 Other long term (current) drug therapy; Z86.73 Personal history of transient ischemic attack (TIA), and cerebral infarction without residual deficits
CPT/HCPCS: 36415; 70450; 71045; 73100; 80048; 80053; 80162; 81001; 83605; 83735; 84439; 84443; 84484; 85025; 87088; 97162; 97167; 97530; 97530-GP; 97535; G0378; J0696; J2185; J2405; J3475; J7040; U0002

== ENCOUNTER 2020-07-06 08:31 | Emergency (ER) | payer MEDICARE ==
[~2020-07-06 08:31] MED LIST changes: +FOSAMAX70 MG PO; +PEPCID AC20 MG PO; +TOPROL XL 50 MG50 MG PO
[2020-07-06 10:10] LABS: BASOPHIL 0.9 % (0-2); EOSINOPHIL 3.4 % (0-7); HCT 33.6 % (37.0-47.0); HGB 11.2 g/dl (12.5-16.0); LYMPHOCYTE 29.7 % (15-48); MCH 31.5 pg (25.0-31.0); MCHC 33.3 g/dL (32.0-36.0); MCV 94.4 fL (78.0-100.0); MONOCYTE 8.6 % (0-12); MPV 10.2 fL (6.0-9.5); NEUTROPHIL 54.4 % (41-80); NRBC 0.2; PLT 463 K/uL (150-400); RBC 3.56 M/uL (4.20-5.40); RDW 16.5 % (11.5-14.0); WBC 11.8 K/uL (4.0-10.5)
[2020-07-06 10:21] LABS: ALBUMIN 1.8 g/dL (3.4-5.0); BILIRUBIN - TOTAL 0.2 mg/dL (0.2-1.0); BUN/CREAT RATIO (CALC) 22.8 RATIO; CREATININE 0.79 mg/dL (0.51-0.95); GLOBULIN (CALCULATION) 4.6 g/dL; POTASSIUM 5.5 mmol/L (3.5-5.1); TOTAL PROTEIN 6.4 g/dL (6.4-8.2)
[2020-07-06 10:24] LABS: LACTIC ACID 2.1 mmol/L (0.4-1.9)
[2020-07-06 11:04] LABS: BILIRUBIN NEGATIVE (NEGATIVE); BLOOD NEGATIVE Ery/uL (NEGATIVE); CLARITY CLEAR (CLEAR); COLOR YELLOW (YELLOW); GLUCOSE (U) NORMAL (NORMAL); LEUKOCYTES NEGATIVE Leu/uL (NEGATIVE); NITRITE NEGATIVE (NEGATIVE); PROTEIN NEGATIVE (NEGATIVE); SPECIFIC GRAVITY 1.015 (1.001-1.030); UROBILINOGEN 0.2 mg/dL (0.2-1.0); pH 7.5 (5.0-9.0)
== END 2020-07-06 15:54 | disposition home or self-care (01) ==
LOC: FER 08:31
PROVIDERS: Emergency Medicine
DX: G89.29 Other chronic pain (principal); S91.012A Laceration without foreign body, left ankle, initial encounter; S21.112A Laceration without foreign body of left front wall of thorax without penetration into thoracic cavity, initial encounter; I48.91 Unspecified atrial fibrillation; I50.9 Heart failure, unspecified; Z88.0 Allergy status to penicillin; Z88.2 Allergy status to sulfonamides; Z79.82 Long term (current) use of aspirin; Z79.899 Other long term (current) drug therapy; X58.XXXA Exposure to other specified factors, initial encounter
CPT/HCPCS: 36415; 74022; 80053; 81003; 83605; 85025

== ENCOUNTER 2020-08-03 16:38 | Emergency (ER) | payer MEDICARE ==
[2020-08-03 19:30] LABS: BASOPHIL 0.7 % (0-2); EOSINOPHIL 3.4 % (0-7); HCT 37.4 % (37.0-47.0); HGB 12.4 g/dl (12.5-16.0); LYMPHOCYTE 34.6 % (15-48); MCH 30.8 pg (25.0-31.0); MCHC 33.2 g/dL (32.0-36.0); MCV 92.8 fL (78.0-100.0); NEUTROPHIL 49.6 % (41-80); NRBC 0; PLT 201 K/uL (150-400); RBC 4.03 M/uL (4.20-5.40); RDW 15.8 % (11.5-14.0)
[2020-08-03 19:43] LABS: INR 1.12 (0.9-1.2); PROTHROMBIN TIME 13.7 SECONDS (11.4-13.6); PTT 32.4 SECONDS (22.2-34.7)
[2020-08-03 19:50] LABS: ALBUMIN 1.8 g/dL (3.4-5.0); BILIRUBIN - TOTAL 0.2 mg/dL (0.2-1.0); BUN/CREAT RATIO (CALC) 19.5 RATIO; CREATININE 0.77 mg/dL (0.51-0.95); GLOBULIN (CALCULATION) 4.1 g/dL; POTASSIUM 4.5 mmol/L (3.5-5.1); TOTAL PROTEIN 5.9 g/dL (6.4-8.2)
== END 2020-08-04 01:30 | disposition other institution (70) ==
LOC: FER 16:38
PROVIDERS: Physician Assistant
DX: I70.202 Unspecified atherosclerosis of native arteries of extremities, left leg (principal); N18.6 End stage renal disease; Z86.73 Personal history of transient ischemic attack (TIA), and cerebral infarction without residual deficits
CPT/HCPCS: 36415; 73502; 80053; 85025; 85610; 85730; J1644; J2270; J3010; Q9967

== ENCOUNTER 2020-08-16 21:11 | Inpatient (IN) | payer MEDICARE ==
[~2020-08-16] VITALS: Ht 152.4 cm; Wt 75.9 kg
[2020-08-16 21:57] LABS: BILIRUBIN NEGATIVE (NEGATIVE); BLOOD 2+ Ery/uL (NEGATIVE); CLARITY CLOUDY (CLEAR); COLOR YELLOW (YELLOW); GLUCOSE (U) NORMAL (NORMAL); LEUKOCYTES 3+ Leu/uL (NEGATIVE); NITRITE POSITIVE (NEGATIVE); PROTEIN 1+ mg/dL (NEGATIVE); SPECIFIC GRAVITY >=1.030 (1.001-1.030); UROBILINOGEN 0.2 mg/dL (0.2-1.0); pH 5.5 (5.0-9.0)
[2020-08-16 21:59] LABS: BACTERIA 3+; URINARY WBC TNTC
[2020-08-16 22:31] LABS: BASOPHIL 0.2 % (0-2); EOSINOPHIL 0.7 % (0-7); HCT 29.2 % (37.0-47.0); HGB 9.4 g/dl (12.5-16.0); LYMPHOCYTE 6.8 % (15-48); MCH 30.7 pg (25.0-31.0); MCHC 32.2 g/dL (32.0-36.0); MCV 95.4 fL (78.0-100.0); MPV 9.6 fL (6.0-9.5); NRBC 0.1; PLT 456 K/uL (150-400); RBC 3.06 M/uL (4.20-5.40); RDW 18.7 % (11.5-14.0); WBC 23.1 K/uL (4.0-10.5)
[2020-08-16 22:48] LABS: CORONAVIRUS 2019 SARS-COV-2 NEGATIVE (NEGATIVE); INFLUENZA A NAA NEGATIVE (NEGATIVE)
[2020-08-16 22:59] LABS: ALBUMIN 1.4 g/dL (3.4-5.0); BILIRUBIN - TOTAL 0.5 mg/dL (0.2-1.0); BUN/CREAT RATIO (CALC) 15.9 RATIO; CREATININE 0.82 mg/dL (0.51-0.95); GLOBULIN (CALCULATION) 4.4 g/dL; TOTAL PROTEIN 5.8 g/dL (6.4-8.2)
[2020-08-16 23:14] LABS: POTASSIUM 6.5 mmol/L (3.5-5.1)
[2020-08-17] MEDS ORDERED: XARELTO10 MG PO (11:28)
[2020-08-17 16:29] LABS: CREATININE 0.81 mg/dL (0.51-0.95)
[2020-08-17 16:37] LABS: POTASSIUM 4.4 mmol/L (3.5-5.1)
[2020-08-18 04:42] LABS: CREATININE 0.75 mg/dL (0.51-0.95); POTASSIUM 3.8 mmol/L (3.5-5.1)
[2020-08-18 05:19] LABS: BASOPHIL 0.4 % (0-2); EOSINOPHIL 1.8 % (0-7); HCT 18.5 % (37.0-47.0); LYMPHOCYTE 13.5 % (15-48); MCV 93.9 fL (78.0-100.0); MONOCYTE 9.7 % (0-12); MPV 9.4 fL (6.0-9.5); NEUTROPHIL 72.9 % (41-80); NRBC 0; PLT 263 K/uL (150-400); RBC 1.97 M/uL (4.20-5.40); RDW 18.5 % (11.5-14.0); WBC 8.2 K/uL (4.0-10.5)
[2020-08-18 05:26] LABS: HGB 6.1 g/dl (12.5-16.0)
--- NOTE | 2020-08-18 14:24 | NUR ---
Visit with patient's dghtr re: current eating habits, food recall history. Dghtr impulsive with providing information; reports patient consume [employer] Instant Breakfast drink x 4/day; product was at bedside however nutritional not on packet. Dghr reported this was high protein with 13g per serving. RD could not validate product however encouraged adding whey protein to each to increase intake. Dghr also reported pt eats variety of foods - some issues with chewing d/t loose dentures. RD informed pt/dghtr that request for diet upgrade to be made. ONS will be added to trays and preferences available for optimal intake.
--- NOTE | 2020-08-18 14:36 | NUR ---
RD requested diet upgrade to dental soft from MD Bean; order approved.
[2020-08-19 04:44] LABS: BASOPHIL 0.5 % (0-2); EOSINOPHIL 0.9 % (0-7); HCT 28.9 % (37.0-47.0); LYMPHOCYTE 13.2 % (15-48); MCH 31.6 pg (25.0-31.0); MCHC 34.9 g/dL (32.0-36.0); MCV 90.3 fL (78.0-100.0); MONOCYTE 8.6 % (0-12); MPV 9.7 fL (6.0-9.5); NEUTROPHIL 72.8 % (41-80); NRBC 0.3; PLT 243 K/uL (150-400); RDW 17.2 % (11.5-14.0); WBC 7.7 K/uL (4.0-10.5)
[2020-08-19 04:45] LABS: HGB 10.1 g/dl (12.5-16.0)
[2020-08-19 05:01] LABS: ALBUMIN 2.4 g/dL (3.4-5.0); BILIRUBIN - TOTAL 0.8 mg/dL (0.2-1.0); BUN/CREAT RATIO (CALC) 14.5 RATIO; CREATININE 0.76 mg/dL (0.51-0.95); GLOBULIN (CALCULATION) 2.4 g/dL; POTASSIUM 3.5 mmol/L (3.5-5.1); TOTAL PROTEIN 4.8 g/dL (6.4-8.2)
[2020-08-20 05:47] LABS: BASOPHIL 0.7 % (0-2); HCT 30.6 % (37.0-47.0); HGB 10.6 g/dl (12.5-16.0); LYMPHOCYTE 29.8 % (15-48); MCH 30.6 pg (25.0-31.0); MCHC 34.6 g/dL (32.0-36.0); MCV 88.4 fL (78.0-100.0); MONOCYTE 9.6 % (0-12); MPV 9.6 fL (6.0-9.5); NEUTROPHIL 52.7 % (41-80); NRBC 0.3; PLT 216 K/uL (150-400); RBC 3.46 M/uL (4.20-5.40); RDW 17.6 % (11.5-14.0); WBC 8.7 K/uL (4.0-10.5)
[2020-08-20 06:15] LABS: BUN/CREAT RATIO (CALC) 14.3 RATIO; CREATININE 0.7 mg/dL (0.51-0.95); POTASSIUM 3.5 mmol/L (3.5-5.1)
--- NOTE | 2020-08-20 15:45 | NUR ---
08/20/20 Ms. Jurado lives with her daughter. She has a rw, wc, 3in1, hospital bed, and s. chair. [facility] is current and patient / family wish to continue the services. Affliation is understood. [facility] has arranged for home IV infusion. - A report was given to Dr. Bean and EDGARD Nino RN.
--- NOTE | 2020-08-21 08:44 | NUR ---
08/20/20 1545 ORDERS RECEIVED FOR MIDLINE. PROCEDURE EXPLAINED TO PT. PT PREPPED AND DRAPED IN STERILE FASHION. PATIENT HAS BANDAGES ON RIGHT UPPER ARM SO RIGHT ARM WILL BE USED. USING THE SITE RITE 6 AND THE RIGHT UPPER ARM A BASILIC WAS VISUALIZED. A 21 GA NEEDLE WAS USED. BLOOD RETURN WAS NOTED BUT THE GUIDE WIRE WOULD NOT THREAD. ATTEMPED AGAIN USING A 21GA NEEDLE , AGAIN THE GUIDE WIRE WOULD NOT THREAD, ATTEMPTED APPROX [address] HAGER NOTIFIED. HE WANTED ME TO ATTEMPT ANOTHER TIME. SO A NEW MIDLINE KIT WAS OBTAINED. PT PREPPED AND DRAPED IN STERILE FASHION. PROCEDURE EXPLAINED AGAINED TO PATIENT. USING THE SITE RITE 6 AND THE PT'S RIGHT ARM BASILIC VEIN WAS VISUALIZED. A 21GA NEEDLE WAS USED, NO BLOOD RETURN NOTED. ATTEMPTED [address]CCESS. DR HAGER ALSO ATTEMPTED USING STERILE TECHNIQUE ATTEMPTED SEVERAL TIMES WITHOUT SUCCESS. PROCEDURE ABORTED. 4X4 PLACED OVER PT'S RIGTH ARM. PT IS NOT A CANDIDATE FOR MIDLINE.
--- NOTE | 2020-08-21 19:45 | NUR ---
PT WAS TRANSFERRED TO [facility], DAUGHTER AND DENISE AT BEDSIDE, REPORT CALLED TO CHASE CLAUDIO
[2020-08-22 03:42] LABS: BASOPHIL 0.5 % (0-2); EOSINOPHIL 5.7 % (0-7); HCT 30.4 % (37.0-47.0); HGB 10.4 g/dl (12.5-16.0); LYMPHOCYTE 31.4 % (15-48); MCH 30.9 pg (25.0-31.0); MCHC 34.2 g/dL (32.0-36.0); MCV 90.2 fL (78.0-100.0); MONOCYTE 9.3 % (0-12); MPV 10.1 fL (6.0-9.5); NEUTROPHIL 51.5 % (41-80); NRBC 0.2; PLT 200 K/uL (150-400); RBC 3.37 M/uL (4.20-5.40); RDW 18.5 % (11.5-14.0); WBC 9.4 K/uL (4.0-10.5)
--- NOTE | 2020-08-22 03:48 | NUR ---
AT [facility] 2129 ON 08/21/20 DAUGHTER OF PATIENT CALLED OUT AND STATED THAT HER PICC LINE DRESSING WAS LEAKING BAD. AFTER ASSESSING DRESSING IT WAS NOTED THAT THERE WAS CONTINUOUS MODERATE BLOODY DRAINAGE COMING FROM THE SITE. SHWETA MOLINA NOTFIED AND STATED THAT WE SHOULD TRY TO CHANGE THE DRESSING AND SEE WHERE THE BLEEDING IS COMING FROM. WITH ASSISTANCE FROM SABRINA THIS WAS ATTEMPTED BUT DEEMED IMPOSSIBLE WITH OUT EXCAERBATING THE SITUATION. SABRINA INTERFACED WITH THE ER DOCTOR ASKING HIM TO COME LOOK AT IT AND THAT IT MAY NEED SUTURES. FROM 2129 UNTIL 99 CONSTANT PRESSURE WAS HELD BY THIS NURSE, OR OTHER AND STAFF AND FAMILY DUE TO CONTINUOS DRAINAGE. AT 99 THE ER DOCTOR TOOK DOWN THE DRESSING AND SAID ITS SLOWED DOWN ENOUGH THAT WE CAN JUST APPLY A PRESSURE DRESSING WITH TEGADERM OVER TOP ON THE RIGHT SIDE OF NECK WHERE THE PICC LINE INCISION WAS. AT 344 IT WAS NOTED THAT THE PRESSURE DRESSING WAS MODERATELY SATURATED BLOODY DRAINAGE BUT CONTROLLED. WILL CONTINUE TO REASSESS. AT APPROXIMATELY 2144 SABRINA SURPERVISOR WAS NOTFIED AND
[2020-08-22 03:58] LABS: BUN/CREAT RATIO (CALC) 15.9 RATIO; CREATININE 0.69 mg/dL (0.51-0.95)
--- NOTE | 2020-08-22 10:43 | NUR ---
08/22/20 Please call [facility] at [phone] if patient is discharged over the weekend. IV medications have been delivered to the home.
--- NOTE | 2020-08-22 18:16 | NUR ---
1520 RIGHT FEMORAL CENTRAL LINE WAS REMOVED BY TEO ALMANZAR RN PER POLICY. PRESSURE WAS HELD FOR 10 MINUTES AND DRESSING WAS APPLIED AND A WEIGHTED SANDBAG TO THE SITE. 1530 IV SITE WAS CHECKED AND FOUND TO BE CLEAN AND DRY AND A NEW DRESSING WAS APPLIED AND THE SAND BAG WAS REPLACED TO THE SITE FOR ANOTHER 10 MINUTES TO MAKE SURE THERE IS NO BLEEDING. 1545 SAND BAG HAS BEEN REMOVED AND THE DRESSING IS CLEAN AND DRY AND WILL CONTINUE TO MONITOR FOR CHANGES.
[2020-08-23] MEDS ORDERED: LASIX40 MG PO (12:57)
[2020-08-23] MEDS ORDERED: INVANZ 1GM1 GM/VIAL IV (12:57)
[2020-08-23] MEDS ORDERED: UROCIT-K10 MEQ PO (12:57)
== END 2020-08-23 15:00 | disposition home health service (06) | DRG 871 ==
LOC: FER 21:11 → FTCU 08-17 08:29 → FMS 08-17 08:29
PROVIDERS: Emergency Medicine; Internal Medicine; Nurse Practitioner; ADMIT Allergy & Immunology Allergy
PROC: 30233N1 Transfusion of Nonautologous Red Blood Cells into Peripheral Vein, Percutaneous Approach (ICD-10-PCS; 2020-08-18)
PROC: B548ZZA Ultrasonography of Superior Vena Cava, Guidance (ICD-10-PCS; principal; 2020-08-20)
PROC: 02HV33Z Insertion of Infusion Device into Superior Vena Cava, Percutaneous Approach (ICD-10-PCS; principal; 2020-08-20)
DX: A41.51 Sepsis due to Escherichia coli [E. coli] (principal); G93.41 Metabolic encephalopathy; N39.0 Urinary tract infection, site not specified; Z16.12 Extended spectrum beta lactamase (ESBL) resistance; I50.32 Chronic diastolic (congestive) heart failure; J98.11 Atelectasis; Z79.899 Other long term (current) drug therapy; K57.90 Diverticulosis of intestine, part unspecified, without perforation or abscess without bleeding; Z20.822 Contact with and (suspected) exposure to COVID-19; Z79.82 Long term (current) use of aspirin; Z79.01 Long term (current) use of anticoagulants; F03.90 Unspecified dementia, unspecified severity, without behavioral disturbance, psychotic disturbance, mood disturbance, and anxiety; I11.0 Hypertensive heart disease with heart failure; E03.9 Hypothyroidism, unspecified; I48.91 Unspecified atrial fibrillation; R53.83 Other fatigue; K21.9 Gastro-esophageal reflux disease without esophagitis; Z86.73 Personal history of transient ischemic attack (TIA), and cerebral infarction without residual deficits; Z86.14 Personal history of Methicillin resistant Staphylococcus aureus infection; M79.7 Fibromyalgia; R62.7 Adult failure to thrive; Z85.820 Personal history of malignant melanoma of skin; G89.4 Chronic pain syndrome; G62.9 Polyneuropathy, unspecified; I73.9 Peripheral vascular disease, unspecified; Z90.49 Acquired absence of other specified parts of digestive tract; Z90.710 Acquired absence of both cervix and uterus; T14.8XXA Other injury of unspecified body region, initial encounter; S81.012A Laceration without foreign body, left knee, initial encounter; S81.812A Laceration without foreign body, left lower leg, initial encounter; S81.811A Laceration without foreign body, right lower leg, initial encounter; S41.111A Laceration without foreign body of right upper arm, initial encounter; S11.91XA Laceration without foreign body of unspecified part of neck, initial encounter; D53.9 Nutritional anemia, unspecified; D50.0 Iron deficiency anemia secondary to blood loss (chronic)
CPT/HCPCS: 36415; 36430; 70450; 71045; 80048; 80053; 80202; 81001; 82150; 83605; 83880; 84145; 84443; 84484; 85025; 86850; 86900; 86901; 86922; 87040; 87076; 87088; 87186; 93005; 96365; 96367; 96375; 97162; 97166; 97530; 97530-GP; 97535; C1751; J0610; J0694; J1200; J1335; J1642; J1940; J2185; J2270; J2405; J2916; J3370; J7030; J7040; J7050; J7120; P9016; P9046; Q9967; U0002